=== PATIENT | female | born 1990 | race Caucasian/White ===

== ENCOUNTER 2016-09-06 15:51 | Emergency (ER) | payer OTHER ==
[2016-09-06 17:04] LABS: HEMOGLOBIN 13.1 gm/dl (12.3-15.3); RED BLOOD COUNT 4.13 M/UL (4.00-5.10); WHITE BLOOD COUNT 4.1 K/UL (4.5-11.0)
[2016-09-06 17:17] LABS: BUN/CREATININE RATIO 13 (0-10)
[2016-09-14] MEDS ORDERED: NORCO 5-325 TA1 EACH PO (10:25)
== END 2016-09-06 18:35 | disposition home or self-care (01) ==
LOC: ER1 15:51
PROVIDERS: Physician Assistant Medical
DX: K80.20 Calculus of gallbladder without cholecystitis without obstruction (principal)
CPT/HCPCS: 36415; 80053; 81001; 82150; 83690; 85025; 96374; 99284; J2270; J2405

== ENCOUNTER → 2016-09-14 | Day surgery (SDC) | payer OTHER ==
[~2016-09-14] MED LIST: NORCO 5-325 TA1 EACH PO
== END | disposition home or self-care (01) ==
LOC: OR 06:01
PROVIDERS: Surgery
PROC: 0FT44ZZ Resection of Gallbladder, Percutaneous Endoscopic Approach (ICD-10-PCS; principal; 2016-09-14 09:15)
DX: K80.10 Calculus of gallbladder with chronic cholecystitis without obstruction (principal); Z87.440 Personal history of urinary (tract) infections; Z90.89 Acquired absence of other organs; Z98.51 Tubal ligation status
CPT/HCPCS: J0295; J1200; J1885; J2250; J2405; J2710; J2765; J3010; J7030; J7050; J7120

== ENCOUNTER 2020-06-11 15:47 | Emergency (ER) | payer OTHER ==
[~2020-06-11 15:47] MED LIST changes: +BENTYL 20MG TAB20 MG PO; +CLEOCIN HCL300 MG PO; +CYCLOBENZAPRINE10 MG PO; +IBUPROFEN600 MG PO; +NAPROSYN500 MG PO; +PERCOCET 7.5-31 EACH PO; +TORADOL 10 MG T10 MG PO; +Viscous lidocaine2% TOP; +ZOFRAN4 MG PO
== END 2020-06-11 19:36 | disposition left against medical advice (07) ==
LOC: ER1 15:47
DX: R55 Syncope and collapse (principal); Z53.21 Procedure and treatment not carried out due to patient leaving prior to being seen by health care provider

== ENCOUNTER → 2020-12-29 | Outpatient (CLI) | payer OTHER | LOC: MRI 15:31 | DX: S46.011D Strain of muscle(s) and tendon(s) of the rotator cuff of right shoulder, subsequent encounter (principal) | CPT/HCPCS: 73221 ==

== ENCOUNTER → 2021-05-09 | Outpatient (CLI) | payer OTHER | LOC: KOH-I 16:18 | DX: R06.02 Shortness of breath (principal) | CPT/HCPCS: 71046 ==